=== PATIENT | female | born 1990 | race Asian ===

== ENCOUNTER 2016-07-28 19:12 | Emergency (ER) | payer OTHER ==
[~2016-07-28] VITALS: Ht 175.3 cm; Wt 114.3 kg
[2016-07-28 19:51] LABS: PLATELET COUNT 245 K/uL (152-353)
[2016-07-28 19:59] LABS: POTASSIUM 3.2 mmol/L (3.6-5.2); SODIUM 137 mmol/L (136-145)
[2016-07-28 20:45] VITALS: BP 130/86; TEMP 98.6
== END 2016-07-28 20:45 | disposition home or self-care (01) ==
LOC: ED 19:12
DX: R42 Dizziness and giddiness (principal)
CPT/HCPCS: 80053; 85027; 93005; 99283

== ENCOUNTER 2017-02-20 06:43 | Emergency (ER) | payer OTHER ==
[~2017-02-20] VITALS: Ht 175.3 cm; Wt 106.6 kg
[2017-02-20 06:42] VITALS: TEMP 98
[2017-02-20 08:15] VITALS: BP 152/94
== END 2017-02-20 09:15 | disposition home or self-care (01) ==
LOC: ED 06:43
DX: R25.2 Cramp and spasm (principal); S00.81XA Abrasion of other part of head, initial encounter; S00.83XA Contusion of other part of head, initial encounter; V43.52XA Car driver injured in collision with other type car in traffic accident, initial encounter
CPT/HCPCS: 90472; 90715; 96372; 99284; J1885; J7040

== ENCOUNTER 2017-05-07 22:30 | Emergency (ER) | payer OTHER ==
[~2017-05-07] VITALS: Ht 175.3 cm; Wt 154.2 kg
[2017-05-07 22:50] VITALS: BP 144/85; TEMP 98.4
== END 2017-05-07 22:51 | disposition home or self-care (01) ==
LOC: ED 22:30
DX: L02.31 Cutaneous abscess of buttock (principal)
CPT/HCPCS: 99282

== ENCOUNTER 2017-05-08 10:30 | Emergency (ER) | payer OTHER ==
[~2017-05-08] VITALS: Ht 175.3 cm; Wt 115.2 kg
[2017-05-08 11:08] VITALS: BP 146/84; TEMP 98.3
== END 2017-05-08 11:08 | disposition home or self-care (01) ==
LOC: ED 10:30
DX: K61.1 Rectal abscess (principal)
CPT/HCPCS: 96372; 99282; J0696

== ENCOUNTER 2017-06-09 18:42 | Emergency (ER) | payer OTHER ==
[~2017-06-09] VITALS: Ht 177.8 cm; Wt 138.3 kg
[2017-06-09 18:56] VITALS: BP 162/95; TEMP 98.4
== END 2017-06-09 19:11 | disposition home or self-care (01) ==
LOC: ED 18:42
DX: R07.89 Other chest pain (principal)
CPT/HCPCS: 99281

== ENCOUNTER 2018-06-08 09:54 | Emergency (ER) | payer OTHER ==
[~2018-06-08] VITALS: Ht 180.3 cm; Wt 114.8 kg
[2018-06-08 10:01] VITALS: BP 139/88; TEMP 97.5
== END 2018-06-08 10:30 | disposition home or self-care (01) ==
LOC: ED 09:54
DX: H00.015 Hordeolum externum left lower eyelid (principal); H00.014 Hordeolum externum left upper eyelid
CPT/HCPCS: 99282

== ENCOUNTER 2019-03-25 11:09 | Observation (INO) | payer OTHER ==
[~2019-03-25] VITALS: Ht 177.8 cm; Wt 139.1 kg
[2019-03-25] VITALS (8 sets, daily range): BP systolic 116–157; BP diastolic 72–91; TEMP 99–99.7; Ht 177.8 cm; Wt 139.1 kg
[2019-03-25 12:50] LABS: PLATELET COUNT 244 K/uL (152-353)
[2019-03-25 12:53] LABS: POTASSIUM 3.7 mmol/L (3.6-5.2)
[2019-03-25 16:31] LABS: PARTIAL THROMBOPLASTIN TIME 39.3 SECONDS (24.5-33.6)
[2019-03-26] VITALS: BP 116/61; BP 127/79; TEMP 98.4; TEMP 98.9
[2019-03-26 04:00] VITALS: BP 109/64; TEMP 99.2
[2019-03-26 08:00] VITALS: BP 125/83; TEMP 98.3
[2019-03-26 08:49] LABS: PLATELET COUNT 237 K/uL (152-353)
[2019-03-26 09:02] LABS: POTASSIUM 3.3 mmol/L (3.6-5.2)
[2019-03-26 12:00] VITALS: BP 120/66; TEMP 99.4
[2019-03-26 16:00] VITALS: BP 149/80; TEMP 99
[2019-03-26 20:00] VITALS: BP 124/72; TEMP 99
[2019-03-27] VITALS: BP 116/61; TEMP 98.9
[2019-03-27 03:58] VITALS: BP 120/65; TEMP 98.7
[2019-03-27 05:23] LABS: PLATELET COUNT 260 K/uL (152-353)
[2019-03-27 08:00] VITALS: BP 120/71; TEMP 97.8
== END 2019-03-27 12:25 | disposition home or self-care (01) ==
LOC: ED 11:09 → MED/SURG 14:50
PROVIDERS: Hospitalist; ADMIT Family Medicine
DX: J15.211 Pneumonia due to Methicillin susceptible Staphylococcus aureus (principal)
CPT/HCPCS: 36415; 36600; 80048; 80053; 81000; 81025; 82805; 83605; 83735; 84100; 84484; 85027; 85379; 85610; 85730; 87040; 87070; 87077; 87185; 87186; 87205; 87502; 93005; 94640; 94664; 94668; 94760; 96365; 96366; 96367; 96375; 99220; 99284; G0378; J0456; J0696; J2405; J2930

== ENCOUNTER 2019-09-22 10:55 | Emergency (ER) | payer OTHER ==
[~2019-09-22] VITALS: Ht 180.3 cm; Wt 101.2 kg
[2019-09-22 11:55] LABS: PLATELET COUNT 280 K/uL (152-353)
[2019-09-22 13:00] VITALS: BP 119/72; TEMP 98.2
== END 2019-09-22 13:05 | disposition home or self-care (01) ==
LOC: ED 10:55
PROVIDERS: Emergency Medicine
DX: J40 Bronchitis, not specified as acute or chronic (principal); J06.9 Acute upper respiratory infection, unspecified; F17.210 Nicotine dependence, cigarettes, uncomplicated
CPT/HCPCS: 85027; 87502; 87651; 99283

== ENCOUNTER 2020-02-01 05:05 | Emergency (ER) | payer OTHER ==
[~2020-02-01] VITALS: Ht 180.3 cm; Wt 127.0 kg
[2020-02-01 05:41] LABS: PLATELET COUNT 252 K/uL (152-353)
[2020-02-01 05:45] LABS: POTASSIUM 3.7 mmol/L (3.6-5.2)
[2020-02-01 06:10] VITALS: BP 124/77; TEMP 98.5
== END 2020-02-01 06:10 | disposition home or self-care (01) ==
LOC: ED 05:05
PROVIDERS: Hospitalist
DX: K52.9 Noninfective gastroenteritis and colitis, unspecified (principal); R19.7 Diarrhea, unspecified; R11.2 Nausea with vomiting, unspecified; N39.0 Urinary tract infection, site not specified; Z20.828 Contact with and (suspected) exposure to other viral communicable diseases
CPT/HCPCS: 36415; 80053; 81000; 81025; 82150; 83690; 85027; 87077; 87086; 87088; 87186; 87635; 99283; G2023; U00003

== ENCOUNTER 2020-03-23 04:35 | Emergency (ER) | payer OTHER ==
[~2020-03-23] VITALS: Ht 180.3 cm; Wt 107.0 kg
[2020-03-23 05:26] VITALS: BP 132/90; TEMP 98.5
== END 2020-03-23 05:26 | disposition home or self-care (01) ==
LOC: ED 04:35
DX: T78.3XXA Angioneurotic edema, initial encounter (principal); K04.7 Periapical abscess without sinus
CPT/HCPCS: 96372; 99283; J2930

== ENCOUNTER 2022-09-04 20:46 | Emergency (ER) | payer OTHER ==
[~2022-09-04] VITALS: Ht 180.3 cm; Wt 100.7 kg
[2022-09-04 21:00] VITALS: BP 128/65; TEMP 98.3
== END 2022-09-04 22:03 | disposition home or self-care (01) ==
LOC: ED 20:46
DX: Z53.21 Procedure and treatment not carried out due to patient leaving prior to being seen by health care provider (principal)
CPT/HCPCS: 99281

== ENCOUNTER 2022-09-05 16:37 | Emergency (ER) | payer OTHER ==
[~2022-09-05] VITALS: Ht 180.3 cm; Wt 110.2 kg
[2022-09-05 16:40] VITALS: TEMP 98.5
[2022-09-05 17:45] VITALS: BP 148/91
== END 2022-09-05 17:49 | disposition home or self-care (01) ==
LOC: ED 16:37
DX: S46.012A Strain of muscle(s) and tendon(s) of the rotator cuff of left shoulder, initial encounter (principal); X58.XXXA Exposure to other specified factors, initial encounter; Y92.89 Other specified places as the place of occurrence of the external cause
CPT/HCPCS: 96372; 99283; J1885; J2930

== ENCOUNTER 2023-02-16 06:48 | Emergency (ER) | payer OTHER ==
[~2023-02-16] VITALS: Ht 180.3 cm; Wt 119.3 kg
[2023-02-16 07:30] VITALS: BP 131/80; TEMP 97.3
== END 2023-02-16 07:30 | disposition home or self-care (01) ==
LOC: ED 06:48
DX: L02.412 Cutaneous abscess of left axilla (principal); L03.112 Cellulitis of left axilla
CPT/HCPCS: 99282